=== PATIENT | male | born 1960 | race Caucasian/White ===

== ENCOUNTER 2025-10-14 13:37 | Emergency (ER) | payer MEDICARE, SELFPAY ==
[2025-10-14 13:41] VITALS: BP 167/87; PULSE 68; TEMP 36.4; O2SAT 99; BMI 32.8
--- NOTE | 2025-10-14 13:59 | CT_ITS ---
[address] [address] Patient Name: HEBER TELLEZ MRN: [id number] date: 1960 Sex: M Assigned Patient Location: ER Current Patient Location: [facility] Accession/Order Number: [id number] Exam Date: 10/14/2025 14:53 Report Date: 10/14/2025 15:41 At the request of: TASHA LEYVA DO Procedure: CT abdomen pelvis w con CT abdomen pelvis w con 10/14/2025 2:58 PM SIGNS AND SYMPTOMS: Abdominal pain, difficulty urinating, intermittent diarrhea and constipation TECHNIQUE: Multidetector ct axial images of the abdomen and pelvis were obtained with IV contrast. Multiplanar reformats were performed and reviewed to further define anatomy and possible pathology. CT was performed with one or more of the following dose reduction techniques: Automated exposure control, adjustment of the mA and/or kV according to patient size, or use of iterative reconstruction technique. COMPARISON: None. FINDINGS: Lower Chest: Within normal limits. ABDOMEN: Liver: Within normal limits. Bile Ducts: Normal caliber. Gallbladder: No calcified gallstones. Normal caliber wall. Pancreas: Within normal limits. Spleen: Within normal limits. Adrenals: Within normal limits. Kidneys: There is a simple cyst in the right renal cortex requiring no further follow-up. Pelvis: Reproductive Organs: No pelvic masses. Ureters: Within normal limits. Bladder: Within normal limits. Bowel: Normal caliber. There is a normal appendix in the right lower quadrant. Mesenteric Lymph Nodes: No enlarged mesenteric lymph nodes. Peritoneum: No ascites or free air, no fluid collection. Vessels: Atherosclerotic changes are noted in the abdominal aorta and its branches. Retroperitoneum: Within normal limits. Abdominal Wall: Within normal limits. Bones: Degenerative changes are noted in the thoracolumbar spine as well as the hips and sacroiliac joints. CT/CT abdomen pelvis w con IMPRESSION: No bowel obstruction or obstructive uropathy. No acute intra-abdominal pathology. Impression dictated by: Heber Holland M.D. 10/14/2025 3:41 PM Dictation Location: [place] [address] Electronically authenticated by: [id number] Y Date: 10/14/2025 15:41
--- NOTE | 2025-10-14 14:02 | PC.NURSE ---
pt has complaints of bilateral abd pain that sometimes radiates into bilat flank. c/o some retention and dysuria on and off. had his prostate checked a few months ago, no issues or enlargement. c/o diarrhea worse last night.
[2025-10-14 14:20] LABS: Hematocrit 39.3 % (42.0-54.0); Hemoglobin 13.5 g/dL (14.0-18.0); Immature Granulocytes Abs Auto 0.01 10^3/uL (0.00-0.03); Immature Granulocytes Pct Auto 0.2 % (0.0-0.5); Lymphocytes Absolute Auto 2.3 10^3/uL (1.2-3.8); Mean Corpuscular HGB Conc 34.4 g/dL (29.9-35.2); Mean Corpuscular Hemoglobin 31.5 pg (25.9-34.0); Mean Corpuscular Volume 91.6 fL (80.0-94.0); Platelet Count 268 10^3/uL (150-450); Red Blood Count 4.29 10^6/uL (4.70-6.10); White Blood Count 6.1 10^3/uL (4.0-11.0)
[2025-10-14] MEDS: 0.9 % SODIUM CHLORIDE 1,000 ML 100 ML IV (14:20)
[2025-10-14] MEDS: KETOROLAC TROMETHAMINE 30 MG/ML VIAL 15 MG IVP (14:20)
[2025-10-14 14:34] LABS: Alanine Aminotransferase 22 U/L (16-63); Albumin Globulin Ratio 1.1; Albumin Level 3.9 g/dL (3.4-5.0); Alkaline Phosphatase 82 U/L (46-116); Anion Gap 11.2; Aspartate Amino Transferase 19 U/L (15-37); Blood Urea Nitrogen 7.0 mg/dL (7.0-18.0); Calcium 9.2 mg/dL (8.5-10.1); Carbon Dioxide 29.1 mmol/L (21.0-32.0); Chloride 105 mmol/L (98-107); Estimated GFR (African America >60 (>=60 mL/min/1.73m^2); Estimated GFR (Non-African Ame >60 (>=60 mL/min/1.73m^2); Globulin 3.4 g/dL; Glucose 125 mg/dL (74-106); Lipase 27.0 U/L (16.0-77.0); Potassium 4.3 mmol/L (3.5-5.1); Sodium 141 mmol/L (136-145); Total Protein 7.3 g/dL (6.4-8.2)
--- OUTSIDE RECORDS SUMMARY | 2025-10-14 14:51 | XMS_ITS | Clinical Summary ---
Author Organization [employer] Address [id number] [address] [place] [address] Care Team Providers Care Cattle Manager Name Role Phone Mundo Jenkins Primary Care Provider [phone] Allergies Active AllergyReactionsCriticalityNoted DateCommentsClindamycinGI Disturbance, QywtPzd2712/18/2023 Medications MedicationSigDispense QuantityRefillsLast FilledStart DateEnd DateStatus omeprazole (PriLOSEC) 20 mg capsule Take 1 capsule (20 mg total) by mouth every other day.2Active valACYclovir (VALTREX) 1000 mg tablet Take 1 tablet (1,000 mg total) by mouth in the morning. I gram a day. 90 tablet 5Active Active Problems ProblemNoted DateDiagnosed DateHerpes wkycnbza73/07/2025 Overview (02/02/2025): Failed conservative tx Class 1 obesity due to excess calories without serious comorbidity with body mass index (BMI) of 33.0 to 33.9 in adult02/02/2025GERD (gastroesophageal reflux disease)06/22/2022Esophageal spasm06/22/2022llergic tllmrbye55/25/2022 Encounters DateTypeDepartmentCare BzzzYdmyekbzkgj96/17/2025Telephone [facility] [address] [place] [address] Yarelis Andersno CMA 09/03/2025Telephone [facility] [address] [place] [address] Venkata Viktorraghu 08/05/2025Results Follow-Up [facility] [address] [place] [phone] Mundo Jenkins DO Prostatic specific antigen screen, Lipid profile, Comprehensive metabolic panel 08/04/2025 1:30 PM EDTOffice Visit [facility] [address] [place] [phone] Mundo Jenkins DO Welcome to Medicare preventive visit (Primary Dx); Screening for cardiovascular condition; Encounter for screening for malignant neoplasm of prostate; Class 1 obesity due to excess calories without serious comorbidity with body mass index (BMI) of 33.0 to 33.9 in adult; Gastroesophageal reflux disease, unspecified whether esophagitis present; Herpes roibrlom30/07/2025Travelfrom Last 3 Months Family History Medical HistoryRelationNameCommentsNo Known ProblemsBrother 1TonyHeart attack Brother 2DanielArthritisFatherDementiaFatherArthritisMotherDementiaMotherCancer Sister 1KathleenCerebral aneurysmSister 2ElaineHeart attackSister 3Rose Cyndee RelationNameStatusCommentsBrother 1TonyAliveBrother 2DanielAliveFatherDeceased MotherDeceasedSister 1KathleenDeceasedSister 2ElaineDeceasedSister 3Rose Cyndee Social History Tobacco UseTypesPacks/DayYears UsedDateSmoking Tobacco: NeverSmokeless Tobacco: NeverAlcohol UseStandard Drinks/WeekCommentsNot Currently0 (1 standard drink = 0.6 oz pure alcohol)[facility] UtilitiesAnswerDate RecordedIn the past 12 months has the [employer], gas, oil, or water [employer] threatened to shut off services in your home?No02/02/2025Social Connection and Isolation PanelAnswerDate RecordedIn a typical week, how many times do you talk on the phone with family, friends, or neighbors?More than three times a week02/02/2025How often do you get together with friends or relatives?More than three times a week02/02/2025How often do you attend restorationism or nondenominational services?More than 4 times per year02/02/2025Do you belong to any clubs or organizations such as restorationism groups, unions, fraternal or athletic groups, or school groups?Yes02/02/2025How often do you attend meetings of the clubs or organizations you belong to?More than 4 times per year02/02/2025 Are you , , , , never , or living with a partner?Ofieiybf80/07/2025UDIT-CAnswerDate RecordedQ1: How often do you have a drink containing alcohol?Never02/02/2025Q2: How many drinks containing alcohol do you have on a typical day when you are drinking?Patient does not drink 02/02/2025Q3: How often do you have six or more drinks on one occasion?Never 02/02/2025Overall Financial Resource Strain (CARDIA)AnswerDate RecordedHow hard is it for you to pay for the very basics like food, housing, medical care, and heating?Somewhat hard02/02/2025PHQ-2AnswerDate RecordedTotal Ndfta902 [facility] of Occupational Health - Occupational Stress Questionnaire AnswerDate RecordedDo you feel stress - tense, restless, nervous, or anxious, or unable to sleep at night because yourmind is troubled all the time - these days? Not at all02/02/2025Exercise Vital SignAnswerDate RecordedOn average, how many days per week do you engage in moderate to strenuous exercise (like a brisk wal k)?0 days02/02/2025On average, how many minutes do you engage in exercise at this level?0 min02/02/2025PRAPARE - TransportationAnswerDate RecordedIn the past 12 months, has lack of transportation kept you from medical appointments or from getting medications?No02/02/2025In the past 12 months, has lack of transportation kept you from meetings, work, or from getting things needed for daily living?No02/02/2025Housing InstabilityAnswerDate RecordedAre you worried or concerned that in the next two months you may not have stable housing that you own, rent or stay in as a part of a household?No02/02/2025hildcareAnswer Date RecordedDo problems getting early childhood teacher make it difficult for you to work or study?No02/02/2025EmploymentAnswerDate RecordedDo you need help finding a local career center and/or a training program?No02/02/2025Hunger ScreeningAnswerDate RecordedWithin the past 12 months we worried whether our food would run out before we got money to buy more.Never True08/04/2025Within the past 12 months the food we bought just didn't last and we didn't have money to get more.Never True08/04/2025Purpose - LifeAnswerDate RecordedI have a purpose and direction in my life.Strongly Agree02/02/2025Sex and Gender InformationValueDate RecordedSex Assigned at BirthNot on fileLegal EhgAepl1506/03/2015 11:53 AM EDTGender Identity Not on fileSexual OrientationNot on file Last Filed Vital Signs Vital SignReadingTime TakenCommentsBlood Elbpvdlt301/7808/04/2025 1:29 PM EDT Pmbab081708/04/2025 1:29 PM SDZOdhqtmpdvvl59.1 ??C (98.8 ??F)08/04/2025 1:29 PM EDTRespiratory Epco3916 1:29 PM EDTOxygen Mekqjawywm27%08/04/2025 1:29 PM EDTInhaled Oxygen Concentration--Mxefaz71.2 kg (218 lb 12.8 oz)08/04/2025 1:29 PM VKLKjordm082.7 cm (5' 7.99 )08/04/2025 1:29 PM EDTBody Mass Index33.28 08/04/2025 1:29 PM EDT Plan of Treatment Health MaintenanceDue DateLast FirxIowzogskKavwupsomcw06/01/2026Postponed from 02/16/2004 (Not Indicated)DTaP,Tdap and Td Vaccines (1 - Tdap)10/29/2025 Postponed from 1978 (Patient Refused)Influenza Uhrjxjb0801/26/2026Postponed from 06/29/2025 (Patient Refused)Adult BMI Follow Up Plan Adult BMI Aqqjvvmrr82Depression Lxzpunuvu53 Fall Risk Ojmigmilr05Medicare Annual Wellness Visit08/04/2026 08/04/2025Tobacco Sjtpdisxa80Zoster (Shingles) Vaccine (1 of 2)08/04/2026Postponed from 2009 (Patient Refused)RSV ( or age 60+ yrs) (1 - 1-dose 75+ series)2034 [employer] Not on file Procedures Procedure NamePriorityDate/TimeAssociated DiagnosisCommentsCOMPREHENSIVE METABOLIC PYVOELqtbnep35/07/2025 2:09 PM EDT Welcome to Medicare preventive visit Screening for cardiovascular condition LIPID INDKBVTWiixzre66/07/2025 2:09 PM EDT Welcome to Medicare preventive visit Screening for cardiovascular condition PROSTATIC SPECIFIC ANTIGEN WBNNCZEabxadi03/07/2025 2:09 PM EDT Encounter for screening for malignant neoplasm of prostate from Last 3 Months Results * Prostatic specific antigen screen (08/04/2025 2:09 PM EDT)ComponentValueRef RangeTest MethodAnalysis TimePerformed AtPathologist SignaturePROSTATIC SPEC ANT2.320.00 - 4.00 ng/mL08/04/2025 10:31 PM [facility]ORATORYComment: The method used for this test is Palmer Nikolski DXI chemiluminescent immunoassay. Values obtained by different assay methods cannot be used interchangeably. Specimen (Source)Anatomical Location / LateralityCollection Method / Volume Collection TimeReceived TimeBloodVenous blood / Pkxggxy6508/04/2025 2:09 PM EDT 08/04/2025 2:09 PM EDT Narrative Authorizing ProviderResult TypeResult StatusDennis G Furlong DOLAB BLOOD ORDERABLESFinal ResultPerforming OrganizationAddressCity/State/ZIP CodePhone Number [facility] [address] [place] [address], * (ABNORMAL) Lipid profile (08/04/2025 2:09 PM EDT)ComponentValueRef RangeTest MethodAnalysis TimePerformed AtPathologist ZvlfeggndICXMTESCCDF794679 - 200 mg/dL08/04/2025 10:30 PM [facility] MARJCECRYKYLKZEDRNBDZU004 (H)27 - 150 mg/dL08/04/2025 10:30 PM [facility] LABORATORYHDL RHXJROYTVAS51(L)>39 mg/dL08/04/2025 10:30 PM [facility]ORATORYComment: HDL <40 mg/dL - High Risk HDL > or = 40mg/dL- Desirable HDL >60 mg/dL - Negative Risk LDL (CALC)117<130 mg/dL08/04/2025 10:30 PM [facility] LABORATORYComment: LDL <100 mg/dL - Desirable LDL >160 mg/dL - High Risk CHOLESTEROL:HDL5.01.0 - 5.010 10:30 PM [facility] LABORATORYVERY LOW KPMVLPHEREM26(H)0 - 30 mg/dL08/04/2025 10:30 PM [facility] LABORATORYSpecimen (Source)Anatomical Location / Laterality Collection Method / VolumeCollection TimeReceived TimeBloodVenous blood / Cdjxeej8808/04/2025 2:09 PM EDT1 2:09 PM EDT Narrative Authorizing ProviderResult TypeResult StatusDennis G Furlong DOLAB BLOOD ORDERABLESFinal ResultPerforming OrganizationAddressCity/State/ZIP CodePhone Number [facility] [address] [place] [address], * Comprehensive metabolic panel (08/04/2025 2:09 PM EDT)ComponentValueRef Range Test MethodAnalysis TimePerformed AtPathologist YhmxfrxblBAASHB975759 - 146 mmol/L1 10:30 PM [facility] LABORATORYPOTASSIUM4.4 3.5 - 5.0 mmol/L1 10:30 PM [facility] IBZURRAT96440 - 109 mmol/L1 10:30 PM [facility] LABORATORYCARBON AEPOYML4708 - 32 mmol/L1 10:30 PM [facility] LABORATORYANION GAP95 - 15 mmol/L1 10:30 PM [facility] LABORATORYBLOOD UREA BIQWIDVW72 - 27 mg/dL08/04/2025 10:30 PM [facility] LABORATORYCREATININE0.960.60 - 1.30 mg/dL 08/04/2025 10:30 PM [facility] LABORATORYComment:METHOD TRACEABLE TO IDOH QKCNEYNVBWCSGSY9971 - 99 mg/dL08/04/2025 10:30 PM [facility] LABORATORYCALCIUM9.88.5 - 10.5 mg/dL08/04/2025 10:30 PM EDT [facility] LABORATORYTOTAL PROTEIN7.16.0 - 8.0 g/dL08/04/2025 10:30 PM [facility] LABORATORYALBUMIN4.33.2 - 5.3 g/dL 08/04/2025 10:30 PM [facility] LABORATORYALKALINE PHOSPHATASE 6739 - 130 U/L1 10:30 PM [facility] CZHMUTUCCHAAE37 <=41 U/L1 10:30 PM [facility] PFZRFHPVNLUVT12<=40 U/L1 10:30 PM [facility] LABORATORYBILIRUBIN,TOTAL 0.40.3 - 1.2 mg/dL08/04/2025 10:30 PM [facility] EGFR Non-Race Ccdkztjlk93>=60 ml/min/1.73sq.m1 10:30 PM [facility] LABORATORYComment: Reported eGFR is based on the CKD-EPI 2020 equation that does not use a race coefficient. Specimen (Source)Anatomical Location / LateralityCollection Method / Volume Collection TimeReceived TimeBloodVenous blood / Yyexlrm1808/04/2025 2:09 PM EDT 08/04/2025 2:09 PM EDT Narrative Authorizing ProviderResult TypeResult StatusDennis G Furlong DOLAB BLOOD ORDERABLESFinal ResultPerforming OrganizationAddressCity/State/ZIP CodePhone Number [facility] [address] [place] [address], [place] [phone] from Last 3 Months Insurance * Guarantor: Samir Mcghee EAccount TypeRelation to PatientDate of BirthPhone Billing AddressPersonal/CpenxpMzdb1960 [facility] [address] [place] [address] Care Teams Team MemberRelationshipSpecialtyStart DateEnd Date Mundo Jenkins DO [address] [place] [address] PCP - GeneralFamily Medicine02/02/25
--- OUTSIDE RECORDS SUMMARY | 2025-10-14 14:51 | XMS_ITS | Clinical Summary ---
Author Organization [facility] Address [address] [place] [address], [address] [place] [address] Care Team Providers Care Cradle Placer Name Role Phone Unavailable Primary Care Provider Unavailabl e Social History Tobacco UseTypesPacks/DayYears UsedDateSmoking Tobacco: Never AssessedSex and Gender InformationValueDate RecordedSex Assigned at BirthNot on fileLegal Sex Male12/08/2012 8:57 PM ESTGender IdentityNot on fileSexual OrientationNot on file Plan of Treatment Not on file
--- OUTSIDE RECORDS SUMMARY | 2025-10-14 14:51 | XMS_ITS | Encounter Summary ---
Author Organization [facility] tem Address [id number] [address] [place] [address] Care Team Providers Care Picker Packer Name Role Phone Mundo Jenkins DO Primary Care Provider + [phone] Encounter Details DateTypeDepartmentCare Team (Latest Contact Info)Frwelykvcem29/08/2025Results [facility] [address] [place] [place] [address] Mundo Jenkins DO [address] [place] [address] Prostatic specific antigen screen, Lipid profile, Comprehensive metabolic panel Social History Tobacco UseTypesPacks/DayYears UsedDateSmoking Tobacco: NeverSmokeless Tobacco: NeverAlcohol UseStandard Drinks/WeekCommentsNot Currently0 (1 standard drink = 0.6 oz pure alcohol)[facility] UtilitiesAnswerDate RecordedIn the past 12 months has the [employer], oil, or water [employer] threatened to shut off services in your home?No02/02/2025Social Connection and Isolation PanelAnswerDate RecordedIn a typical week, how many times do you talk on the phone with family, friends, or neighbors?More than three times a week02/02/2025How often do you get together with friends or relatives?More than three times a week02/02/2025How often do you attend yazidism or baptism services?More than 4 times per year02/02/2025Do you belong to any clubs or organizations such as yazidism groups, unions, fraternal or athletic groups, or school groups?Yes04/07/2025How often do you attend meetings of the clubs or organizations you belong to?More than 4 times per year02/02/2025 Are you , , , , never , or living with a partner?Zeghpqux92/07/2025UDIT-CAnswerDate RecordedQ1: How often do you have a [...] housing, medical care, and heating?Somewhat hard02/02/2025PHQ-2AnswerDate RecordedTotal Zaxdk413 [facility] [place] of Occupational Health - Occupational Stress Questionnaire [...] of a household?No02/02/2025hildcareAnswer Date RecordedDo problems getting child care team lead make it difficult for you to work [...] InformationValueDate RecordedSex Assigned at BirthNot on fileLegal VatTrdh1906/03/2015 11:53 AM EDTGender Identity Not on fileSexual OrientationNot on filedocumented as of this encounter Miscellaneous Notes * Telephone Encounter - Alen Schreiber CMA - 08/05/2025 10:04 AM EDT ----- Message from Mundo Jenkins DO sent at 08/05/2025 10:05 AM EDT ----- His triglycerides were high at 161. His HDL, or good cholesterol, was low at 37. That is a risk factor for heart disease. His cardiovascular risk of heart attack or stroke in the next 10 years is intermediate at 15.4%. Statin is indicated. I will send 1 in if he agrees. I would also recommend aMediterranean diet. Exercise can also lower triglycerides and raise HDL. His PSA and CMP were normal ----- Message ----- From: Lab, Background User Sent: 08/04/2025 10:30 PM EDT To: Mundo Jenkins DO * Telephone Encounter - Alejandra Webber CMA - 08/05/2025 10:04 AM EDT I spoke with pt and he is declining a statin at this time, and stated he will modify his diet and exercise to try and level out his cholesterol levels. Thank you. documented in this encounter Plan of Treatment Not on file documented as of this encounter Visit Diagnoses Not on filedocumented in this encounter Additional Health Concerns AssessmentNoted TimePHQ-9 Depression Total Score: 1:28 PM EDTA Body Mass Index follow-up plan has been documented for the tvevqhq4908/04/2025 3:13 PM EDTdocumented as of this encounter Care Teams Team MemberRelationshipSpecialtyStart DateEnd Date Mundo Jenkins DO [address] [facility] [place] [address] PCP - GeneralFamily Medicine02/02/25documented as of this encounter
--- OUTSIDE RECORDS SUMMARY | 2025-10-14 14:51 | XMS_ITS | Encounter Summary ---
Author Organization [facility] [employer] Address [id number] [address] [place] [address] Care Team Providers Care Motorboat Mechanic Name Role Phone Mundo Jenkins Primary Care Provider + [phone] Encounter Details DateTypeDepartmentCare Team (Latest Contact Info)Nburypjgqfd15/17/2025Telephone [facility] [address] [place] [phone] Yarelis Anderson CMA Social History Tobacco UseTypesPacks/DayYears UsedDateSmoking Tobacco: NeverSmokeless Tobacco: NeverAlcohol UseStandard Drinks/WeekCommentsNot Currently0 (1 standard drink = 0.6 oz pure alcohol)[facility] UtilitiesAnswerDate RecordedIn the past 12 months has the [employer], gas, oil, or water [employer] threatened to shut off services in your home?No02/02/2025Social Connection and Isolation PanelAnswerDate RecordedIn a typical week, how many times do you talk on the phone with family, friends, or neighbors?More than three times a week02/02/2025How often do you get together with friends or relatives?More than three times a week02/02/2025How often do you attend gnosticism or restoration services?More than 4 times per year02/02/2025Do you belong to any clubs or organizations such as gnosticism groups, unions, fraternal or athletic groups, or school groups?Yes02/02/2025How often do you attend meetings of the clubs or organizations you belong to?More than 4 times per year02/02/2025 Are you , , , , never , or living with a partner?Pvsrnjnt51/07/2025UDIT-CAnswerDate RecordedQ1: How often do you have a [...] housing, medical care, and heating?Somewhat hard02/02/2025PHQ-2AnswerDate RecordedTotal Kohvq533 [facility] [place] of Occupational Health - Occupational Stress Questionnaire [...] household?No02/02/2025hildcareAnswer Date RecordedDo problems getting child care worker make it difficult for you to work [...] InformationValueDate RecordedSex Assigned at BirthNot on fileLegal AxgEhmw4806/03/2015 11:53 AM EDTGender Identity Not on fileSexual OrientationNot on filedocumented as of this encounter Miscellaneous Notes * Telephone Encounter - Yarelis Anderson CMA - 10/14/2025 1:19 PM EST Pt called to schedule an apt for severe abdominal pain. I then asked Dr. Jenkins if I should send to the ER and was directed to do so. Pt is heading there now. documented in this encounter Plan of Treatment Not on file documented as of this encounter Visit Diagnoses Not on filedocumented in this encounter Additional Health Concerns AssessmentNoted TimePHQ-9 Depression Total Score: 1:28 PM EDTA Body Mass Index follow-up plan has been documented for the tutrruu0708/04/2025 3:13 PM EDTdocumented as of this encounter Care Teams Team MemberRelationshipSpecialtyStart DateEnd Date Mundo Jenkins DO [address] [facility] [place] [address] PCP - GeneralFamily Medicine02/02/25documented as of this encounter
--- OUTSIDE RECORDS SUMMARY | 2025-10-14 14:51 | XMS_ITS | Patient Health Record ---
Author Organization [facility] vices Address [address] [place], [place] [id number] Care Team Providers Care Spout Liner Name Role Phone Stephanie Chow Unavailable [phone] Allergies No Known Allergies Reason For Referral No Information Medications Medication SIG (Take, Route, Frequency, Duration) Notes Start Date End Date Status valACYclovir HCl 1 GM Tablet Oral; Duration: 30 Days ActiveOmeprazole 40 MG Capsule Delayed ReleaseOral; Duration: 90 DaysActive Social History Sex Assigned At : Social History Observation Description Sex Assigned At Male Social History Social DeterminantsSocial InfoQuestionAnswerNotesPRAPAREDate Completed/Updated: 11/23/2023patient entered dataWhat is your current housing situation?I have housingpatient entered dataAre you worried about losing your housing?No patient entered dataWhat is the highest level of school that you have finished?More than high schoolpatient entered dataHas lack of transportation kept you from medical appointments, meetings, work or from getting things needed for daily living?Nopatient entered dataHow often do you see or talk to people that you care about and feel close to? (For example: talkingto friends on the phone, visiting friends or family, going to rastafarian or club meetings)More than 5 times a weekpatient entered dataIn the past year have you spent more than 2 nights in a row in a skilled nursing, care home, prison center, orjuvenile correctional facility?Nopatient entered dataDo you feel physically and emotionally safe where you currently live?Yespatient entered dataIn the past year, have you been afraid of your partner or ex-partner?Nopatient entered dataAre you a refugee?Nopatient entered dataWhat country are you from?[place] patient entered dataTobacco Use:Social InfoQuestionAnswerNotesTobacco Use/SmokingAdditional Findings: Tobacco Non-UserCurrent non-smoker Problems Problem Type SNOMED Code ICD Code Onset Dates Problem Status W/U Status Risk Notes Problem Obese class I ([id number]) BMI 33.0- 33.9,adult (Z68.33) Activeconfirmed Plan Of Treatment No Information Insurance Providers Payer Name Payer Address Payer Phone Subscriber Number Group Number Insured Name Patient Relationship to Insured Coverage Start Date Coverage End Date [id number] Dentaquest [facility] [place] [address] [place] [address] [id number] Jose Mcgheeelf - patient is the [id number] [address] [facility] after Anthem[address] [place], [place] [id number], MarkSelf - patient is the [id number] 2022
--- OUTSIDE RECORDS SUMMARY | 2025-10-14 14:51 | XMS_ITS | Patient Health Record ---
Author Organization [facility] [place] Address [address] [place] [address] Care Team Providers Care Pattern Carrier Name Role Phone None, Unknown or Primary Care Provider Unavailab le Reason For Referral No Information Plan Of Treatment No Information Insurance Providers Payer Name Payer Address Payer Phone Subscriber Number Group Number Insured Name Patient Relationship to Insured Coverage Start Date Coverage End Date [employer] [address] [place] [id number] Jsoe Mcgheeelf - patient is the insured
--- OUTSIDE RECORDS SUMMARY | 2025-10-14 14:52 | XMS_ITS | Clinical Summary ---
Author Organization [facility] Address [address] [place] [address] Care Team Providers Care Needle Loom Operator Helper Name Role Phone Derek Stone MD Primary Care Provider [phone] Monika Muir NP Unavailable [phone] Allergies Active AllergyReactionsCriticalityNoted DateCommentsClindamycinRash,GI uluximfjkskVla29/20/2024 Medications MedicationSigDispense QuantityRefillsLast FilledStart DateEnd DateStatus omeprazole (PriLOSEC) [address] capsule Indications:Gastroesophageal reflux disease without esophagitisTake 1 capsule (40 mg) by mouth in the morning. Take before meals. Do not crush or chew.. 90 capsule ctive Active Problems ProblemNoted DateDiagnosed DateClass 1 mxiplmp0012/20/2023H/O herpes labialis 12/20/2023 Assessment & Plan (12/20/2023 1:34 PM EST): On valacyclovir. Dose recently decreased to 500 mg. Allergic raokcbds22/25/2022GERD (gastroesophageal reflux disease)06/22/2022 Assessment & Plan (12/20/2023 1:34 PM EST): Well controlled on Omeprazole. Social History Tobacco UseTypesPacks/DayYears UsedDateSmoking Tobacco: FormerCigarettesPassive Smoke Exposure: NeverSmokeless Tobacco: Never Tobacco Cessation:Counseling Given: No Alcohol UseStandard Drinks/WeekCommentsNever0 (1 standard drink = 0.6 oz pure alcohol)PHQ-2AnswerDate RecordedPatient Health Questionnaire-2 Qadnd772 Sex and Gender InformationValueDate RecordedSex Assigned at BirthNot on file Legal InvEmfy9701/10/2023 7:25 PM EDTGender IdentityNot on fileSexual Orientation Not on file Last Filed Vital Signs Vital SignReadingTime TakenCommentsBlood Elcauldn634/80012/20/2023 1:07 PM EST Cidox149612/20/2023 1:07 PM EST99% w3Rbuktyivlsc96.7 ??C (96.3 ??F)12/20/2023 1:07 PM ESTRespiratory Hlwt0157 3:43 PM EDTOxygen Saturation--Inhaled Oxygen Concentration--Tfgxsh702 kg (227 lb)12/20/2023 1:07 PM SNWVrcwuw150.8 cm (5' 10 )12/20/2023 1:07 PM ESTBody Mass Index32.57012/20/2023 1:07 PM EST Plan of Treatment Not on file Insurance [address] [place] [address] on file Care Teams Team MemberRelationshipSpecialtyStart DateEnd Date Derek Stone MD PCP - GeneralFamily Medicine06/02/24 Monika Muir NP [facility]06/02/24
[2025-10-14 14:57] LABS: Glucose Urine UA NEGATIVE (NEGATIVE)
[2025-10-14 15:07] LABS: Cast Seen? NONE SEEN #/LPF (NONE SEEN); Crystals Seen? None Seen #/HPF (None Seen); Urine Culture Indicated NO
--- NOTE | 2025-10-14 15:19 | ED.ABDPAIN1 ---
HPI - Abdominal Pain General Chief Complaint: Abdominal Pain Stated Complaint: ABDOMINAL PAIN Time Seen by Provider: 10/14/25 13:40 Source: patient Mode of arrival: walk-in History of Present Illness HPI narrative: The patient is an otherwise healthy 65-year-old male who presents to the emergency department complaining of abdominal pain. The abdominal pain has been intermittent over the last month. It is migratory in nature. Unknown what makes it worse. Nothing makes it better. Sometimes is located in the right side of the abdomen, sometimes it is on the left side of the abdomen, sometimes it is in the central area of the abdomen but today it is in the suprapubic area. Patient states that he does not have any history of any bowel surgeries. No history of bowel obstructions. The patient states that he has either diarrhea or constipation and his bowel movements are always irregular. He has never been given the diagnosis of irritable bowel syndrome. He has no history of Crohn's or ulcerative colitis. There is no known history of black, bloody, tarry stools. No fever or chills. He has urinary hesitancy at times but does not have any urgency or frequency. No hematuria. He states that his doctor checked him for a big prostate and he does not have 1. Patient states that he has not had any trauma to his abdomen. No known history of pancreatitis. No known history of circulatory problems. He denies smoking marijuana. No known history of gastroparesis. No diabetes. Pain at times can be a 5 out of 10 but then its sharp and stabbing and can be a 9 out of 10. Related Data Previous Rx's ?Medication ?Instructions ?Recorded dicyclomine 20 mg tablet 20 mg PO QID PRN abdominal pain 10/14/25 #20 tabs Allergies Allergy/AdvReac Type Severity Reaction Status Date / Time No Known Drug Allergies Allergy Verified 10/14/25 13:47 Review of Systems ROS Status of ROS 10 or more systems reviewed and unremarkable except as noted in history and below PFSH PFSH Social History Little interest or pleasure in doing things: not at all Feeling down, depressed, or hopeless: not at all Exam Narrative Exam Narrative: Prior to examining the patient, I have washed with hospital approved and provided Antiseptic Hand Teacher Of The Deaf/Hard Of Hearing and have also applied gloves.? Prior to touching the patient, I asked for consent to examine the patient.? General: Alert and oriented, well nourished, mild distress. Eye: PERRL, EOMI, normal conjunctiva. HENT: Normocephalic, normal hearing, moist oral mucosa, no scleral icterus, no sinus tenderness. Neck: Supple, non-tender, no carotid bruits, no JVD, no lymphadenopathy. Lungs: Clear to auscultation and percussion, non-labored respiration. No rhonchi, rales, wheezing Heart: Normal rate, regular rhythm, no murmur, gallop or edema. Abdomen: Soft, diffuse nonfocal abdominal tenderness without guarding or rebound, non-distended, normal bowel sounds, no masses. Musculoskeletal: Normal range of motion and strength, no tenderness or swelling. Skin: Skin is warm, dry and pink, no rashes or lesions. Neurologic: Awake, alert, and oriented X3, CN II-XII intact. Psychiatric: Cooperative, appropriate mood and affect.? Following the conclusion of the examination, I have washed my hands thoroughly after removing examination gloves. Constitutional Vital Signs, click to edit/add: Last Vital Signs Temp 97.6 F 10/14/25 13:41 Pulse 68 10/14/25 13:41 Resp 20 10/14/25 13:41 BP 167/87 H 10/14/25 13:41 Pulse Ox 99 10/14/25 13:41 O2 Del Method Room Air 10/14/25 13:41 Course Course Hospital Course: 65-year-old male presents with migrating abdominal pain. He does not have a history of diverticulitis. He states he had a colonoscopy done about a year ago that did not show any history of diverticulitis or any colon pathology. Vital Signs Vital signs: Vital Signs Temperature 97.6 F 10/14/25 13:41 Pulse Rate 68 10/14/25 13:41 Respiratory Rate 20 10/14/25 13:41 Blood Pressure 167/87 H 10/14/25 13:41 Pulse Oximetry 99 10/14/25 13:41 Oxygen Delivery Method Room Air 10/14/25 13:41 Temperature 97.6 F 10/14/25 13:41 Pulse Rate 68 10/14/25 13:41 Respiratory Rate 20 10/14/25 13:41 Blood Pressure 167/87 H 10/14/25 13:41 Pulse Oximetry 99 10/14/25 13:41 Oxygen Delivery Method Room Air 10/14/25 13:41 MDM - Abdominal Pain MDM Narrative Medical decision making narrative: In summary the patient is a 65-year-old male presenting with abdominal pain. 16:04 I went in to speak to the patient about his results and he is very irritable. He is irritated with me that I cannot find the etiology of his pain. I did try to politely explained to him that our focus was really to look at the abdominal pain and to rule out any emergent causes of his abdominal pain the laboratories in conjunction with the CT scan effectively ruled out ischemic kidney, kidney stones, pyelonephritis, urinary tract infection, cystitis, bowel obstructions, diverticulitis, perforation, splenic infarct, cholecystitis, liver pathology. He just was very upset that I was unable to discern the cause. I reminded him that I was not saying that he did not have pain what I was saying is that there is no emergent medical condition that would require surgery or hospital admission at this time but rather I recommended he follow-up with his primary medical physician and perhaps a relocation director to have more comprehensive follow-up. Differential Diagnosis Differential diagnosis: Likely abdominal pain, acute appendicitis, calculus of kidney, constipation, diverticulitis, endometriosis, gastroenteritis, pancreatitis and small bowel obstruction Medical Records Attestation: I reviewed the patient's medical records. Lab Data Attestation: I reviewed the patient's lab results. Labs: Lab Results 10/14/25 10/14/25 Range/Units 13:54 14:52 WBC 6.1 (4.0-11.0) 10^3/uL RBC 4.29 L (4.70-6.10) 10^6/uL Hgb 13.5 L (14.0-18.0) g/dL Hct 39.3 L (42.0-54.0) % MCV 91.6 (80.0-94.0) fL MCH 31.5 (25.9-34.0) pg MCHC 34.4 (29.9-35.2) g/dL RDW 11.8 (11.0-15.0) % Plt Count 268 (150-450) 10^3/uL MPV 9.7 (9.5-13.5) fL Neut % (Auto) 47.2 (43.0-75.0) % Lymph % (Auto) 37.1 (20.5-60.0) % [place] % (Auto) 10.6 (1.7-12.0) % Eos % (Auto) 4.1 (0.9-7.0) % Baso % (Auto) 0.8 (0.2-2.0) % Neut # (Auto) 2.9 (1.4-6.5) 10^3/uL Lymph # (Auto) 2.3 (1.2-3.8) 10^3/uL [place] # (Auto) 0.6 (0.3-0.8) 10^3/uL Eos # (Auto) 0.3 (0.0-0.7) 10^3/uL Baso # (Auto) 0.1 (0.0-0.1) 10^3/uL Abs Immat Gran (auto) 0.01 (0.00-0.03) 10^3/uL Imm/Tot Granulo (auto) 0.2 (0.0-0.5) % Sodium 141 (136-145) mmol/L Potassium 4.3 (3.5-5.1) mmol/L Chloride 105 (98-107) mmol/L Carbon Dioxide 29.1 (21.0-32.0) mmol/L Anion Gap 11.2 BUN 7.0 (7.0-18.0) mg/dL Creatinine 0.99 (0.70-1.30) mg/dL Est GFR ( Amer) >60 (>=60 mL/min/1.73m^2) Est GFR (Non-Af Amer) >60 (>=60 mL/min/1.73m^2) BUN/Creatinine Ratio 7.1 Glucose 125 H (74-106) mg/dL Calcium 9.2 (8.5-10.1) mg/dL Total Bilirubin 0.4 (0.2-1.0) mg/dL AST 19 (15-37) U/L ALT 22 (16-63) U/L Alkaline Phosphatase 82 (46-116) U/L Total Protein 7.3 (6.4-8.2) g/dL Albumin 3.9 (3.4-5.0) g/dL Globulin 3.4 g/dL Albumin/Globulin Ratio 1.1 Lipase 27.0 (16.0-77.0) U/L Urine Color Lt. yellow (YELLOW) Urine Clarity Clear (CLEAR) Urine pH 6.0 (5.0-9.0) Ur Specific [place] <=1.005 A (1.005-1.025) Urine Protein Negative (NEG/TRACE) mg/dL Urine Glucose (UA) Negative (NEGATIVE) mg/dL Urine Ketones Negative (NEGATIVE) mg/dL Urine Occult Blood Trace-i (NEGATIVE) Urine Nitrite Negative (NEGATIVE) Urine Bilirubin Negative (NEGATIVE) Urine Urobilinogen 0.2 (0.2-1.0) EU/dL Ur Leukocyte Esterase Negative (NEGATIVE) Urine RBC 0-2 (0-2) #/HPF Urine WBC None seen (NONE SEEN) #/HPF Ur Squamous Epith Cells Rare (NONE/RARE) #/LPF Urine Crystals None seen (None Seen) #/HPF Urine Bacteria Trace A (NONE SEEN) #/HPF Urine Casts None seen (NONE SEEN) #/LPF Urine Mucus Moderate A (NONE SEEN) Ur Culture Indicated? No Imaging Data CT scan - abdomen: Attestation: I have reviewed the pertinent imaging results. Radiologist's impression: ITS Impressions Abdomen/Pelvis CT 10/14/25 13:59 IMPRESSION: No bowel obstruction or obstructive uropathy. No acute intra-abdominal pathology. Impression dictated by: Samir Holland M.D. 10/14/2025 3:41 PM Dictation Location: [place] [address] Electronically authenticated by: [id number] Y Date: 10/14/2025 15:41 Discharge Plan Discharge Chief Complaint: Abdominal Pain Clinical Impression: Abdominal pain Patient Disposition: Home, Self-Care Time of Disposition Decision: 16:06 Condition: Good Mode of Transportation: Private Vehicle Prescriptions / Home Meds: New dicyclomine 20 mg tablet 20 mg PO QID PRN (Reason: abdominal pain) Qty: 20 0RF Print Language: Hungarian Instructions: Acute Abdominal Pain (ED) Referrals: BEN AGUILAR [Primary Care Provider, Family Practice] - 1 week
== END 2025-10-14 16:21 | disposition home or self-care (01) ==
PROVIDERS: Emergency Provider Emergency Medicine; PCP Family Medicine
DX: R10.9 Unspecified abdominal pain (principal)
CPT/HCPCS: 36415; 74177; 80053; 81001; 83690; 85025; 96374; 99284; J1885; Q9967